=== PATIENT | male | born 1955 | race Caucasian/White ===

== ENCOUNTER → 2017-10-20 10:26 | Outpatient (CLI) | payer BC, SELFPAY ==
[2017-10-20 11:35] LABS: Prostate Specific Ag Screen 1.9 ng/mL (0.0-4.0)
== END ==
PROVIDERS: Visit Provider Urology
DX: N41.9 Inflammatory disease of prostate, unspecified (principal); Z12.5 Encounter for screening for malignant neoplasm of prostate
CPT/HCPCS: 36415; G0103

== ENCOUNTER 2021-02-07 13:42 | Emergency (ER) | payer BC, SELFPAY ==
[2021-02-07 13:43] VITALS: BP 151/84; PULSE 81; RESP 16; TEMP 36.9; O2SAT 98; BMI 27.3
[2021-02-07 13:58] VITALS: BP 151/84; PULSE 83; RESP 17; O2SAT 95
[2021-02-07 14:00] VITALS: BP 152/83; PULSE 75; RESP 18; O2SAT 94
[2021-02-07 14:26] LABS: Basophils % 0.3 % (0.1-2.0); Eosinophils # 0.2 K/mm3 (0.0-0.4); Hematocrit 50.5 % (42.0-52.0); Hemoglobin 17.5 g/dL (14.1-18.0); Lymphocytes # 2.5 K/mm3 (0.7-4.5); Lymphocytes % 27.6 % (10-50); Mean Corpuscular HGB Conc 34.6 g/dL (31.8-35.4); Mean Corpuscular Hemoglobin 31.2 pg (27.0-31.2); Mean Corpuscular Volume 90.1 fl (80-94); Mean Platelet Volume 8.5 fl (7.4-10.4); Monocytes # 0.5 K/mm3 (0.1-1.0); Monocytes % 6.1 % (1.7-9.3); Neutrophils # 5.7 K/mm3 (1.8-7.8); Platelet Count 214 K/mm3 (142-424); Red Blood Count 5.61 M/mm3 (4.60-6.20); Red Cell Distribution Width 13.2 % (11.5-17.5); White Blood Count 8.9 K/mm3 (4.8-10.8)
[2021-02-07 14:30] VITALS: BP 129/71; PULSE 77; RESP 17; O2SAT 93
[2021-02-07 14:33] LABS: Chloride 104 mmol/L (98-107); Potassium 3.8 mmoL/L (3.5-5.1); Sodium 140 mmol/L (136-145)
[2021-02-07 14:36] LABS: Alanine Aminotransferase 30 U/L (12-78); Albumin Level 4.5 g/dl (3.5-5.0); Alkaline Phosphatase 133 U/L (38-126); Anion Gap 15.8 mEq/L (5-15); Aspartate Amino Transferase 34 U/L (17-59); Bilirubin,Total 1.7 mg/dl (0.2-1.3); Blood Urea Nitrogen 15 mg/dl (9-20); Carbon Dioxide 24 mmol/L (22.0-30.0); Creatinine Clearance Estimated 87 mL/min (50-200); Estimated Glomerular Filt Rate 75 ml/min (>60); GFR (African American) 91 ML/MIN (>60); Globulin 4.3 g/dL (1.3-3.2); Total Protein,Serum 8.8 g/dl (6.3-8.2)
[2021-02-07 14:37] LABS: Calcium 9.1 mg/dl (8.4-10.2); Glucose 156 mg/dl (74-100)
[2021-02-07 15:00] VITALS: BP 133/77; PULSE 73; RESP 16; O2SAT 94
[2021-02-07 15:06] LABS: Microscopic, Urine URINE MICROSCOPIC (MICROSCOPIC)
--- NOTE | 2021-02-07 15:09 | CT_ITS ---
PROCEDURE INFORMATION: Exam: CT Abdomen And Pelvis Without Contrast Exam date and time: 02/07/2021 3:09 PM Age: 65 years old Clinical indication: Abdominal pain; Flank; Right; Additional info: CT kidney stone protocol TECHNIQUE: Imaging protocol: Computed tomography of the abdomen and pelvis without contrast. Radiation optimization: All CT scans at this facility use at least one of these dose optimization techniques: automated exposure control; mA and/or kV adjustment per patient size (includes targeted exams where dose is matched to clinical indication); or iterative reconstruction. COMPARISON: CR CXR1VP XR chest portable 05/02/2018 2:50 PM FINDINGS: Lungs: Dependent atelectasis in the posterior lungs. No focal consolidation, as visualized. Calcified right middle lobe pulmonary granuloma Liver: The liver appears normal. Gallbladder and bile ducts: Cholelithiasis and/or gallbladder polyps. Punctate calcification seen in the gallbladder series 3, image 26, and a 4 mm nodule along the posterior neck of the gallbladder on series 3, image 28. No biliary dilatation. Pancreas: Fatty infiltrative changes in the pancreas, likely age related. No ductal dilatation. Spleen: No splenomegaly. Calcified granulomas. Adrenal glands: The adrenal glands are normal. Kidneys and ureters: A bilobed calcified stone or cluster of 2 tiny stones in the distal right ureter located approximately 2-3 cm above the ureterovesical junction. See axial series 3, images 103-104, and coronal series 601 images 44-45. In aggregate this calcification measures 5 mm length, and up to 3 mm diameter. This has heterogeneous HU density, with measurements of 244-800. This is poorly seen on the delivery clerk topogram due to tiny size of the calcification. Proximal to this, there is mild right hydronephrosis and hydroureter. There is another bilobed stone or cluster of 2 stones at the lower pole of the right kidney coronal series 601, image 46, and a punctate right upper pole stone on coronal image 48. No definite stones on the left. No hydronephrosis or hydroureter on the left. Stomach and bowel: The distal colon and rectum are empty and contracted, with slightly fatty appearance of the colon wall, but no acute findings. Mild small intestinal air, no dilated loops or mucosal thickening.The stomach is normal. Appendix: A normal appendix is identified. Intraperitoneal space: There is no free intraperitoneal air. There is no significant free intraperitoneal fluid. Vasculature: A few coronary artery calcifications. The abdominal-pelvic vasculature demonstrates scattered mild atherosclerotic calcification. There is no aortic aneurysm. No portal venous gas. Lymph nodes: No significantly enlarged lymph nodes by short axis criteria. Urinary bladder: The bladder is normal. Reproductive: Mild prostate enlargement 5.5 x 4.3 x 3.8 cm. Seminal vesicles are unremarkable. Bones/joints: There are spinal degenerative changes, with multilevel disc narrrowing and spondylosis. No acute fracture or high-grade listhesis. Mild hip degenerative changes. Bilateral sacroiliitis. Pelvic enthesophytes. Soft tissues: There are no soft tissue masses or fluid collections. IMPRESSION: 1. Mild right hydronephrosis and hydroureter, with obstructing 5 mm bilobed stone or 2 tiny stones in the distal right ureter as detailed above. 2. Additional small nonobstructing right renal calculi. 3. Additional nonemergency and chronic findings as above, including cholelithiasis or gallbladder polyp, and chronic granulomatous changes.
[2021-02-07 15:10] LABS: Appearance,Urine SL CLOUDY (Clear); Blood, Urine 3+ (Negative); Color,Urine DK YELLOW (Yellow); Glucose,Urine (UA) Negative (Negative); Ketones,Urine Negative (Negative); Leukocyte Esterase,Urine Negative (Negative); Nitrate,Urine Negative (Negative); Protein,Urine TRACE (Negative); Specific Gravity, Urine >= 1.030 (1.005-1.030)
[2021-02-07 15:15] LABS: Bilirubin,Urine 1+ (Negative)
[2021-02-07 15:16] LABS: Bacteria,Urine Trace /lpf; Mucus,Urine 1+ /lpf; Squamous Epithelial Cell,Urine Occasional #/hpf (0-5)
[2021-02-07 16:51] VITALS: BP 134/76; PULSE 95; RESP 16; TEMP 36.7; O2SAT 98
--- NOTE | 2021-02-08 11:36 | HMH.EDGENADL ---
ED Disposition Clinical Impression: Right nephrolithiasis Disposition: Home, Self-Care Condition on Discharge: Good Instructions: DI for Acute Pain -- Adult Additional Instructions: Return to the emergency department for high fevers, chills, intractable nausea or vomiting, or pain that does not respond to medications at home. Should expect your stones to pass over the next few days. You should begin taking Flomax once a day and use Zofran every 6 hours as needed for nausea as well as oxycodone every 6 hours as needed for pain that is not responsive to Tylenol and ibuprofen. Prescriptions: Tamsulosin HCl [Flomax 0.4mg capsule] 0.4 mg PO HS #10 cap Prescription Printed Oxycodone HCl [Oxycodone 5mg tab (IR)] 5 mg PO Q6H #12 tab Prescription Printed Ondansetron [Zofran 4mg ODT] 4 mg PO TIDP PRN 4 Days #12 tab PRN Reason: Nausea Prescription Printed Referrals: Liudmila Barclay APRN [Primary Care Provider] - - Critical Care Critical Care Time: No Attestation: On 02/07/21, the high probability of a clinically significant, sudden or life threatening deterioration of the following system(s) required my full and direct attention, intervention and personal management. The time I documented below is in addition to time spent performing reported procedures but includes the following listed in this critical care notation. Medical Decision Making - Medical Records Medical records reviewed: Yes: I reviewed the patient's medical records. - Ramone Inquiry Pt receiving controlled substance: No Vital Signs: 02/07/21 13:43 02/07/21 13:58 02/07/21 14:00 Temperature 98.5 F Temperature Source Oral Pulse Rate 83 75 Pulse Rate [Radial] 81 Respiratory Rate 16 17 18 Blood Pressure 151/84 H 152/83 H Blood Pressure [Right Arm] 151/84 H Blood Pressure Mean 117 106 Blood Pressure Mean [Right Arm] 106 Blood Pressure Source Blood Pressure Position Blood Pressure Position [Right Arm] Sitting 02 Sat by Pulse Oximetry 98 95 94 L Oxygen Delivery Method Room Air 02/07/21 14:30 02/07/21 15:00 02/07/21 16:51 Temperature 98.0 F Temperature Source Oral Pulse Rate 77 73 95 H Pulse Rate [Radial] Respiratory Rate 17 16 16 Blood Pressure 129/71 133/77 134/76 Blood Pressure [Right Arm] Blood Pressure Mean 90 93 Blood Pressure Mean [Right Arm] Blood Pressure Source Automatic Cuff Blood Pressure Position Sitting Blood Pressure Position [Right Arm] 02 Sat by Pulse Oximetry 93 L 94 L Oxygen Delivery Method Room Air - Lab Data Lab Results 02/07/21 14:05: WBC 8.9, RBC 5.61, Hgb 17.5, Hct 50.5, MCV 90.1, MCH 31.2, MCHC 34.6, RDW 13.2, Plt Count 214, MPV 8.5, Neut % (Auto) 64.0, Lymph % (Auto) 27.6, Scurry % (Auto) 6.1, Eos % (Auto) 2.0, Baso % (Auto) 0.3, Neut # (Auto) 5.7, Lymph # (Auto) 2.5, Scurry # (Auto) 0.5, Eos # (Auto) 0.2, Baso # (Auto) 0.0 02/07/21 14:05: Sodium 140, Potassium 3.8, Chloride 104, Carbon Dioxide 24, Anion Gap 15.8 H, BUN 15, Creatinine 1.00, Estimated Creat Clear 87, Estimated GFR 75, Est GFR ( Amer) 91, Glucose 156 H, Calcium 9.1, Total Bilirubin 1.7 H, AST 34, ALT 30, Alkaline Phosphatase 133 H, Total Protein 8.8 H, Albumin 4.5, Globulin 4.3 H, Albumin/Globulin Ratio 1.0 L 02/07/21 14:45: Urine Color Dk yellow, Urine Appearance Sl cloudy, Urine pH 6.0, Ur Specific [place] >= 1.030, Urine Protein Trace, Urine Glucose (UA) Negative, Urine Ketones Negative, Urine Blood 3+, Urine Nitrate Negative, Urine Bilirubin 1+ A, Urine Urobilinogen 1.0, Ur Leukocyte Esterase Negative, Urine RBC 10-20, Urine WBC 3-5, Ur Squamous Epith Cells Occasional, Urine Bacteria Trace, Urine Mucus 1+ Result diagrams: 02/07/21 14:05 02/07/21 14:05 Orders (Tests/Meds): ED MEDICATIONS Discontinued Medications Generic Name Dose Route Start Last Admin Trade Name Freq PRN Reason Stop Dose Admin Hydromorphone HCl 0.5 mg 02/07/21 19:45 02/07/21 14:45 Hydromorpho
== END 2021-02-07 16:53 | disposition home or self-care (01) ==
PROVIDERS: Emergency Provider Emergency Medicine; PCP Nurse Practitioner
DX: N20.0 Calculus of kidney (principal); K21.9 Gastro-esophageal reflux disease without esophagitis; E03.9 Hypothyroidism, unspecified
CPT/HCPCS: 74176; 80053; 81001; 85025; 96365; 96375; 99283; J2405

== ENCOUNTER 2022-05-31 19:28 | Emergency (ER) | payer BC, SELFPAY ==
--- NOTE | 2022-05-31 19:24 | ECG_ITS ---
APPROVED REPORT Exam: Resting ECG HR:99 bpm ECG Measurements Heart Rate 99 AXES [place] 176 P 71 QRSd 92 QRS 48 QT 344 T 42 QTc 400 Conclusion SINUS RHYTHM NORMAL ECG UNCONFIRMED REPORT Electronically signed by : Vince Cee MD 06/01/2022 10:16:37
[2022-05-31 19:29] VITALS: BP 151/81; PULSE 94; RESP 19; TEMP 36.6; O2SAT 99; BMI 26.6
[2022-05-31 19:30] VITALS: BP 151/81; PULSE 96; RESP 18; O2SAT 96
[2022-05-31 19:31] VITALS: BMI 26.6
--- NOTE | 2022-05-31 19:34 | XR_ITS ---
PROCEDURE INFORMATION: Exam: XR Chest Exam date and time: 05/31/2022 7:31 PM Age: 66 years old Clinical indication: Pain; Angina pectoris and chest pressure; Additional info: Chest pain TECHNIQUE: Imaging protocol: Radiologic exam of the chest. Views: 2 views. COMPARISON: CR CXR1VP XR chest portable 05/02/2018 2:50 PM FINDINGS: Lungs: Unremarkable. No consolidation. Pleural spaces: Unremarkable. No pleural effusion. No pneumothorax. Heart/Mediastinum: Unremarkable. No cardiomegaly. Bones/joints: Unremarkable. IMPRESSION: No acute findings.
[2022-05-31 19:58] LABS: Chloride 103 mmol/L (98-107); Potassium 3.8 mmoL/L (3.5-5.1); Sodium 140 mmol/L (136-145)
[2022-05-31 20:00] VITALS: BP 145/71; PULSE 80; RESP 14; O2SAT 94
[2022-05-31 20:00] LABS: Alanine Aminotransferase 35 U/L (12-78); Alkaline Phosphatase 153 U/L (38-126); Anion Gap 14.8 mEq/L (5-15); Aspartate Amino Transferase 40 U/L (17-59); Bilirubin,Direct 0.3 mg/dl (0.0-0.4); Bilirubin,Indirect 0.9 mg/dL (0.0-0.9); Bilirubin,Total 1.2 mg/dl (0.2-1.3); Bilirubin,Unconjugated 0.9 mg/dL (0.0-1.1); Blood Urea Nitrogen 14 mg/dl (9-20); Carbon Dioxide 26 mmol/L (22.0-30.0); Creatinine Clearance Estimated 76 mL/min (50-200); Estimated Glomerular Filt Rate 67 ml/min (>60); GFR (African American) 82 ML/MIN (>60)
[2022-05-31 20:01] LABS: Albumin Level 4.9 g/dl (3.5-5.0); Calcium 9.1 mg/dl (8.4-10.2); Glucose 147 mg/dl (74-100); Magnesium 2.2 mg/dl (1.6-2.3)
[2022-05-31 20:03] LABS: Basophils # 0.1 K/mm3 (0-0.2); Basophils % 1.3 % (0.1-2.0); Eosinophils # 0.2 K/mm3 (0.0-0.4); Eosinophils % 2.2 % (0.1-12.0); Hematocrit 48.7 % (42.0-52.0); Hemoglobin 15.8 g/dL (14.1-18.0); Lymphocytes % 36.6 % (10-50); Mean Corpuscular HGB Conc 32.4 g/dL (31.8-35.4); Mean Corpuscular Hemoglobin 29.2 pg (27.0-31.2); Mean Corpuscular Volume 90.1 fl (80-94); Mean Platelet Volume 8.9 fl (7.4-10.4); Monocytes # 0.5 K/mm3 (0.1-1.0); Monocytes % 6.4 % (1.7-9.3); Neutrophils # 4.4 K/mm3 (1.8-7.8); Neutrophils % 53.5 % (37.0-80.0); Platelet Count 252 K/mm3 (142-424); Red Cell Distribution Width 13.8 % (11.5-17.5); White Blood Count 8.2 K/mm3 (4.8-10.8)
--- NOTE | 2022-05-31 20:14 | PC.NURSE ---
ER in room speaking with pt at this time
--- NOTE | 2022-05-31 20:16 | HMH.EDCP ---
Discharge Plan Disposition Patient Disposition: Admitted as Observation Chief Complaint: Chest Pain Prescriptions Prescriptions: No Action levothyroxine [Synthroid] 100 mcg tablet 100 mcg PO ONCE amlodipine-atorvastatin 10-40 mg tablet 1 tab PO ONCE cholecalciferol (vitamin D3) 25,000 unit capsule 50,000 unit PO QWEEK potassium chloride 10 mEq tablet extended release PO 90 Days Qty: 180 omeprazole 40 mg capsule,delayed release(DR/EC) 40 mg PO 90 Days aspirin [Adult Low Dose Aspirin] 81 mg tablet,delayed release (DR/EC) 81 mg PO ONCE ibuprofen 800 MG tablet 800 mg PO Q8HP Qty: 15 0RF Rx Instructions: Take with food. prednisone 50 MG tablet 50 mg PO DAILY Qty: 5 0RF Rx Instructions: Take with food. tamsulosin 0.4 MG capsule 0.4 mg PO HS Qty: 10 0RF ondansetron 4 MG tablet,disintegrating 4 mg PO TIDP PRN (Reason: Nausea) 4 Days Qty: 12 0RF oxycodone 5 MG tablet 5 mg PO Q6H Qty: 12 0RF Referrals Follow up/Referrals: Liudmila Barclay, [employer] FORKLIFT OPERATOR [Primary Care Provider] - See instructions Clinical Impressions Clinical Impression: Chest pain Discharge ED Provider: Ernst Velasquez Chest Pain HPI General Chief Complaint: Chest Pain Stated Complaint: chest pain Time Seen by Provider: 05/31/22 20:16 Mode of Arrival: Family Vehicle Source of Information: Patient, Relative and Medical Record Limitations: No Limitations Description of Symptoms (Recalled from ER Triage Doc. by RN): Pt c/o midsternal chest pain that radiates into mid back. 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 He report the pain is mostly constant, denies anything making it worse or better. Denies any n/v/d. Denies any dyspnea. He does c/o maybe a little SOB d/t the pain. Denies any prior cardiac hx. He does report HTN, HLD, and hypothyroidism. History of Present Illness HPI narrative: new onset of midsternal chest tightness which started about 2 pm - no specific inc or dec factors - no known ht disease - has hx of htn/elevated lipids - MD complaint: chest pain indicative of cardiac Onset (ago): hour(s) Duration: constant Activity at onset: light activity Pain location: substernal Severity: moderate Quality: tightness Pain radiation: back Risk Factors for CAD: Hypertension, Hypercholesterolemia and Family Hx of CAD Treatments prior to or on arrival for Cardiac Chest Pain: none GERALD Score for Non-Stemi Age of Patient: 60-69 years old Heart Rate: 70-89 bpm Systolic Blood Pressure: 140-159 mmHg Serum Creatinine: 0.80-1.19 mg/dl CHF [place] Class: I-No CHF Other Risk Factors: None Non-Stemi Risk Score: 98 Risk Stratification: 1-108 = Low Risk Related Data Home Medications Medication Instructions Recorded Confirmed amlodipine 10 mg-atorvastatin 40 1 tab PO ONCE 10/20/17 mg tablet aspirin 81 mg tablet,delayed 81 mg PO ONCE 10/20/17 release (Adult Low Dose Aspirin) cholecalciferol (vitamin D3) 625 50,000 unit PO QWEEK 10/20/17 mcg (25,000 unit) capsule levothyroxine 100 mcg tablet 100 mcg PO ONCE 10/20/17 (Synthroid) omeprazole 40 mg capsule,delayed 40 mg PO 90 days 10/20/17 release potassium chloride 10 mEq PO 90 days ##180 10/20/17 tablet,extended release Previous Rx's Medication Instructions Recorded ibuprofen 800 mg tablet 800 mg PO Q8HP #15 tabs 05/02/18 prednisone 50 mg tablet 50 mg PO DAILY #5 tabs 05/02/18 ondansetron 4 mg disintegrating 4 mg PO TIDP PRN Nausea 4 days #12 02/07/21 tablet tabs oxycodone 5 mg tablet 5 mg PO Q6H #12 tabs 02/07/21 tamsulosin 0.4 mg capsule 0.4 mg PO HS #10 caps 02/07/21 Allergies Allergy/AdvReac Type Severity Reaction Status Date / Time No Known Allergies Allergy Unverified 10/20/17 08:[address] [facility] Disclaimer: The information contained in this section may have been updated after the patient was seen, as this information can be updated by othe
[2022-05-31 20:24] LABS: Troponin I < 0.01 ng/ml (0.00-0.034)
[2022-05-31 20:30] VITALS: BP 147/71; PULSE 75; RESP 17; O2SAT 94
--- NOTE | 2022-05-31 20:39 | PC.NURSE ---
ER speaking with pt at this time
--- NOTE | 2022-05-31 20:43 | PC.NURSE ---
MD & this RN at bedside s/w pt regarding results and admission.
[2022-05-31 20:48] LABS: Coronavirus 19, PCR Not Detected (NotDetected); Influenza A, PCR Not Detected (NotDetected); Influenza B, PCR Not Detected (NotDetected)
[2022-05-31 21:00] VITALS: BP 146/74; PULSE 84; RESP 16; O2SAT 96
[2022-05-31 21:11] LABS: Troponin I < 0.01 ng/ml (0.00-0.034)
[2022-05-31 21:26] VITALS: BP 145/72; PULSE 82; RESP 18; TEMP 36.6; O2SAT 99
== END 2022-05-31 21:29 | disposition left against medical advice (07) ==
PROVIDERS: Nurse Practitioner Acute Care; Emergency Provider Emergency Medicine; PCP Nurse Practitioner
DX: R07.89 Other chest pain (principal); I10 Essential (primary) hypertension; E78.00 Pure hypercholesterolemia, unspecified; Z82.49 Family history of ischemic heart disease and other diseases of the circulatory system
CPT/HCPCS: 71046; 80048; 80076; 83735; 84484; 85025; 93005; 96360; 99285; C9803; U0003; U0005

== ENCOUNTER → 2022-06-09 07:18 | Outpatient (CLI) | payer BC, SELFPAY ==
--- NOTE | 2022-06-09 07:18 | NM_ITS ---
APPROVED REPORT Exam: Nuclear Stress Test Indication: HTN, HYPERLIPIDEMIA, C.P., SOB, FATIGUE Patient Location: Outpatient Stress Tech: Suellen Cotton MI Tech:MELE Cortes RT (R)(N)(M) Ht: 5 ft 8 in Wt: 185 lbs HR: 99 bpm BP: 134/72 mmHg BSA: 1.98 m2 TID: 1.18 BMI: 28.1 History: HTN, HYPERLIPIDEMIA, C.P., SOB, FATIGUE Procedure: Patient received a 0.4 mg of intravenous Lexiscan, resting heart rate 99 bpm, resting blood pressure 134/72 mmHg, with Lexiscan maximum heart rate achived was 134 bpm which is Less than 85 % of the maximum predicted heart rate and blood pressure was 102/42 mmHg. With Lexiscan, patient denied any complaint of chest pain. Electrocardiogram Resting electrocardiogram showed atrial fibrillation, with Lexiscan there is radiation of 0.[address] segment depression noted from the baseline EKG. The EKG portion of the Lexiscan is borderline for ischemia. Cardiac Stress and Resting SPECT Images: Cardiac Stress and Resting SPECT images were obtained using technetium 99m Myoview 31.0 mCi stress and 10.55 mCi at rest. Gated SPECT for analysis of segmental wall motion and calculation of the ejection fraction also done. Prone images were also obtained. Cardiac stress and rest respectively show uniform myocardial activity without segmental perfusion abnormality, computer derived ejection fraction is 60% with no regional wall motion abnormality, right ventricle is normal size and contractility. Conclusion: 1. The EKG portion of the Lexiscan is borderline for ischemia. 2. No scintigraphic evidence of reversible ischemia seen, computer derived ejection fraction 60% with no regional wall motion abnormality, right ventricle is normal size and contractility. Electronically signed by : Ra Reeves MD 06/10/2022 06:48:16
--- NOTE | 2022-06-09 07:55 | CA_ITS ---
FINAL REPORT TECHNIQUE: Color Doppler, duplex Doppler and singleton scale sonography of the bilateral neck arterial vasculature was performed. Velocities were measured in the carotid arteries. Stenosis evaluation based on the validated velocity criteria. CLINICAL HISTORY: carotid artery stenosis pt reported. FINDINGS: The peak systolic velocity of the right common carotid artery is 73 cm/s. The peak systolic velocity of the right internal carotid artery is 87 cm/s and end diastolic velocity 54 cm/s. A small amount of plaque is present. The ICA CCA ratio is 2.03. The right external carotid artery is patent. The right vertebral artery is patent with antegrade flow. The peak systolic velocity of the left common carotid artery is 73 cm/s. The peak systolic velocity of the left internal carotid artery is 89 cm/s and end diastolic velocity 29 cm/s. A small amount of plaque is present. The ICA CCA ratios 1.75. The left external carotid artery is patent.The left vertebral artery is patent with antegrade flow. IMPRESSION: Less than 50% bilateral carotid stenoses. Bilateral patent vertebral arteries with antegrade flow. If indicated, CTA or MRA could further evaluate. Reviewed, Interpreted and Dictated by Kimberly Holland MD Transcribed by Lilibeth Peters Authenticated and [facility]
--- NOTE | 2022-06-09 07:55 | CA_ITS ---
APPROVED REPORT EXAM: Comprehensive 2D, Doppler, and color-flow Echocardiogram Weight Count Operator: Nazia Nielsen, MOLLY, RVS Ht: 5 ft 8 in Wt: 182lbs BSA: 1.96 BP: 140/75 mmHg Indications: abn ekg, SOB, HTN, HLD 2D Dimensions Aortic Root 2.97 cm M: 3.1 - 3.7 LA Volume 32.50 mL Left Atrium 3.68 cm M: 3.0 - 4.0 LA Volume Index 16.110078 mL/m2 (M/F) 16-34 LVOT 2.07 cm (M/F) 1.5-2.5 M-Mode Dimensions RVDd 3.05 cm (0.9-2.6) LA Diam 3.97 cm (1.9-4.0) LVDd 4.39 cm (3.5-5.7) Ao Diam 2.88 cm (2.0-3.7) LVDs 2.44 cm (3.5-5.7) IVSd 0.97 cm (0.6-1.1) PWd 1.00 cm (0.6-1.1) EF (Teich) 75.90% EPSs 0.20 cm FS 44.40% EDV (Teich) 87.20 mL TAPSE 1.61 (<1.7) ESV (Teich) 21.00 mL LV Diastology E Decel Time 180.00 (160-240 msec) E/A Ratio 1.87 MED E' 12.80 (< 7 cm/sec) MED A' 2.80 cm/s E'/MED E' Ratio 8.97 (>14) LAT E' 12.60 (<10 cm/sec) LAT A' 3.30 cm/s E/LAT E' Ratio 9.11 (>14) Aortic Valve LVOT Max 133.00 (70-110 cm/s) LVOT VTI 21.67 cm AoV Peak Aydin. 131.00 (50-130 cm/s) AI PHT 486.00 ms AO Peak GR. 6.90 mmHg AO Mean GR. 3.50 (<5 mmHg) AO VTI 22.16 (18-25 cm) REBECCA (VTI) 3.29 (2.5-4.5 cm2) Mitral Valve MV A Velocity 61.00 (40-130 cm/s) E/A Ratio 1.87 MV Decel. Time 180.00 (160-240 ms) Pulmonary Valve PV Peak Velocity 82.00 (50-150 cm/s) Left Ventricle Left atrium is mildly enlarged, left ventricle is normal size mild concentric left ventricular hypertrophy, estimated ejection fraction 55% with no regional wall motion abnormality, diastolic parameters are inconclusive. Right Ventricle Right atrium and right ventricle are mildly enlarged with normal contractility. Aortic Valve Aortic valve is minimally thickened and calcified without aortic stenosis, there is trace aortic insufficiency. Mitral Valve Mitral valve grossly normal, there is trace mitral regurgitation. Tricuspid Valve Tricuspid valve grossly normal, there is trace tricuspid regurgitation, tricuspid regurgitation jet velocity is inadequate for calculation of the right ventricular systolic pressure. Pulmonic Valve Pulmonic valve is poorly visualized. Great Vessels Aortic root is normal size. Inferior vena cava is normal size with normal inspiratory collapse. Pericardium No significant pericardial effusion noted. Conclusion 1. Mild biatrial enlargement, normal left ventricular size, mild concentric left ventricular hypertrophy, estimated ejection fraction 55% with no regional wall motion abnormality, diastolic parameters are inconclusive. 2. Mildly enlarged right ventricle with normal contractility. 3. Trace aortic, mitral and tricuspid regurgitation. 4. No significant pericardial effusion. 5. Inferior vena cava is normal size with normal inspiratory collapse. Electronically signed by : Ra Reeves MD 06/10/2022 05:36:04
--- NOTE | 2022-06-09 09:53 | CA_ITS ---
APPROVED REPORT Exam: Pharmacologic Technologist: Suellen Cotton Ht: 5 ft 8 in Wt: 182 lbs BSA: 1.96 m2 HR: 99 bpm BP: 134/72 mmHg Indications: Angina, CAD Medical History Medications: Amlodipine,,,,, Omeprazole,,,,, Aspirin,,,,, Synthroid,,,,, Vitamin D3,,,,, Atorvastatin,,,,, Ibuprofen,,,,, Potassium,,,,, Stress Test Details Test: LEXISCAN Reason for pharmacologic stress test: a-fib. HR Resting HR: 101 bpm Max Heart Rate (APMHR): 156.327679 bpm Max HR Achieved: 136 bpm Target HR (85% APMHR): 132.666856 bpm % of APMHR: 87.18 Recovery HR: 93 bpm BP Resting BP: 134.0/72.0 mmHg Max BP: 134.0/72.0 mmHg Recovery BP: 117.0/63.0 mmHg ECG Resting ECG: Atrial fibrillation, otherwise normal Clinical Exercise duration: 04:32 min Highest Stage Achieved: Exercise capacity: 1.0 METs Stress ECG Conclusion Switched from exercise due to atrial fibrillation. Symptoms: Shortness of air, light headed, malaise, vagal episode with bradycardia and hypotension. No chest pain. Arrhythmias/Ectopy: Rare PVC vs aberrantly conducted beat. ST-T Changes: [address] depression inferiorly and 0.[address] depression laterally. Conclusion: EKG changes suggestive of ischemia. Myoview images reported separately. Test Summary REST . . . . . . . Resting REST 02:24 . . 101 . 134/ 72 . . Stage 1 . . . . . . . Myoview Injected Stage 1 01:00 . . 133 . . . . Stage 2 01:00 . . 66 . . . . Stage 3 01:00 . . 61 . 102/ 42 . . Stage 4 01:00 . . 69 . 75/ 37 . . Stage 4 01:32 . . 72 . 94/ 47 . Stop exercise at 04:32 RECOVERY 01:00 . . 82 . 111/ 65 . . RECOVERY 02:00 . . 84 . 122/ 75 . . RECOVERY 03:00 . . 88 . 122/ 75 . . RECOVERY 04:00 . . 88 . 120/ 63 . . RECOVERY 05:00 . . 88 . 106/ 64 . . RECOVERY 06:00 . . 90 . 106/ 64 . . RECOVERY 07:00 . . 88 . 115/ 59 . . RECOVERY 08:00 . . 79 . 115/ 59 . . RECOVERY 09:00 . . 83 . 104/ 65 . . RECOVERY 10:00 . . 86 . 117/ 63 . . RECOVERY 10:14 . . 83 . 117/ 63 . . Electronically signed by : Ra Reeves MD 06/10/2022 06:35:55
== END ==
LOC: RAD 07:18
PROVIDERS: PCP Nurse Practitioner; Visit Provider Nurse Practitioner Family
DX: R06.00 Dyspnea, unspecified (principal); R07.9 Chest pain, unspecified; I10 Essential (primary) hypertension; E78.5 Hyperlipidemia, unspecified; I65.29 Occlusion and stenosis of unspecified carotid artery
CPT/HCPCS: 78452; 93017; 93306; 93880; A9502; J2785